=== PATIENT | male | born 1960 | race Caucasian/White ===

== ENCOUNTER 2017-11-22 08:23 | Inpatient (IN) ==
[~2017-11-22 08:23] MED LIST: Bacitracin 50,000 UNIT, Polymyxin B Sulfate 500,000 UNIT, Sodium Chloride IRRigation 1,... IR ONE
[2017-11-22] MEDS ORDERED: CeFAZolin Syr 2,000MG/20 ML 2,000 MG/20 ML SYRINGE IVPB ONE (08:48)
[2017-11-22] MEDS ORDERED: Albuterol 2.5 MG/3 ML NEBULIZER IH ONE (08:52)
[2017-11-22] MEDS ORDERED: Ringers Solution, Lactated 1,000 ML IVC SCH ×2 (09:00→14:10)
--- NOTE | 2017-11-22 09:34 | Anesthesia Evaluation PreOp ---
Date of Encounter: 11/22/17 Time of Encounter: 09:32 - Past History Planned Operation: Exploration of cervical fusion, removal hardware/osteop Cardiac History: Denies any Significant Hx Pulmonary History: Smoker [employer] History: Other (hx cervical fusion; chronic back pain) Other Medical History: Denies Any Significant HX Anesthesia History: No Prior Anesthetic Complications, Past Anesthesia ( cervical fusion, hernia repair, right ankle surgery, T&A) Alcohol Use: none Drug use: marijuana Medications and Allergies Carisoprodol [Soma] 350 mg PO DAILY 11/22/17 [History] Oxycodone HCl/Acetaminophen [Percocet 5-325 mg Tablet] 1 tab PO Q8H PRN [History] Simvastatin [Zocor] 20 mg PO DAILY 11/22/17 [History] 3 Allergy/AdvReac Type Severity Reaction Status Date / Time No Known Allergies Allergy Verified 11/22/17 08:59 - Meds/Allergy Pre-op Review Medications Reviewed: Yes Allergies Reviewed: Yes Beta Blockers on Current Med List: No Anesthesia Results - Labs Laboratory Tests 11/17/17 11/17/17 11/17/17 13:50 13:50 13:50 WBC 9.7 Hgb 17.4 H Hct 50.4 H Plt Count 169 PT 11.2 INR 1.0 APTT 33.6 Sodium 138 Potassium 3.7 Chloride 106 Carbon Dioxide 23 BUN 10 Creatinine 0.81 Est GFR ( Amer) > 60 Est GFR (Non-Af Amer) > 60 BUN/Creatinine Ratio 12 Anesthesia Exam Last Vital Signs Temp 97.6 F 11/22/17 08:51 Pulse 67 11/22/17 08:51 Resp 18 11/22/17 09:12 BP 151/94 11/22/17 09:12 Pulse Ox 96 11/22/17 09:12 Weight: 96 kg NPO (# of Hours): > 8 hrs - HEENT Pupil (Motor): Pupils equal, EOMI Mallampati: III Teeth: Edentulous Oral Opening: Greater than 3 - [employer] LOC: Oriented [employer] Motor: Normal RUE, Normal LUE, Normal RLE, Normal LLE, Normal Face - Cardiac Rhythm: Regular Murmur: None - Pulmonary Breath Sounds: bilateral Clear Anesthesia Assess/Plan ASA Score: 2 Modified Buster Scale for Level of Consciousness: Cooperative, oriented, and tranquil Anesthetic Plan: General Monitoring Plan: Standard Monitors Recovery Plan: PACU
--- NOTE | 2017-11-22 10:24 | History & Physical Report ---
Date of Encounter: 11/22/17 Time of Encounter: 10:24 24 Hour HP Update - Instructions Instructions: If the History and Physical is less than 30 days old and was completed prior to A.M. admission and or procedure and has NOT been updated on calendar day of procedure please complete this update prior to performing procedure. - Update Patient reports changes in Medical Condition: No Changes in examination, assessment, or condition: No Changes in Medication: No Preop tests/diagnostics Reviewed: Yes Pre-Op MRSA Screen: Negative Surgery Remains Indicated: Yes Consent for Planned Operative Procedure(s) Verified: Yes - Pre-Operative Checklist Preoperative Checklist Indicated: No Prophylactic Antibiotic Ordered: Yes Home Medications Include Beta Aidan: No Beta Aidan Taken Today (Day of Surgery): No Beta Aidan Taken Yesterday (Day Prior to Surgery): No Is VTE Prophylaxis Indicated?: Yes
[2017-11-22] MEDS ORDERED: *HR* Propofol 200 MG/20 ML VIAL IVP ONE ×2 (10:42→11:42)
[2017-11-22] MEDS ORDERED: Ondansetron 4 MG/2 ML VIAL ONE (10:42)
[2017-11-22] MEDS ORDERED: *HR* FentaNYL (PF) 100 MCG/2 ML VIAL ONE ×2 (10:42→11:42)
[2017-11-22] MEDS ORDERED: Lidocaine -MPF 2% 2 ML VIAL ONE (10:42)
[2017-11-22] MEDS ORDERED: Ketorolac 30 MG/ML VIAL ONE (10:42)
[2017-11-22] MEDS ORDERED: *HR* Midazolam HCl 2 MG/2 ML VIAL ONE (10:42)
[2017-11-22] MEDS ORDERED: Dexamethasone 4 MG/ML VIAL ONE (10:42)
[2017-11-22] MEDS ORDERED: *HR* Rocuronium Bromide 50 MG/5 ML VIAL ONE (10:42)
[2017-11-22] MEDS ORDERED: EPHEDrine 50 MG/ML VIAL ONE (11:23)
[2017-11-22] MEDS ORDERED: Neostigmine Methylsulfate 3 MG/3 ML SYRINGE ONE (12:46)
--- NOTE | 2017-11-22 12:50 | Orthopedic Operative Note ---
Date of procedure: 11/22/17 Pre-op diagnosis: Dysphagia, esophageal obstruction, cervical spondylosis Post-op diagnosis: same Operation/Findings: Exploration of fusion, removal of cervical osteophytes:The patient was brought to the operating room and placed supine on the operating room table. Successful general endotracheal anesthesia intubation was performed. Palomino catheter was placed prior to positioning. Compression boots and stockings were placed for deep vein thrombosis prophylaxis. Padding was also placed all bony prominences including the ulnar nerve near the medial epicondyles of the elbows were appropriately padded. Mild traction was placed on the bilateral shoulders and taped into place. Preoperative antibiotics were administered. The area from the mandible bilaterally to the upper thoraces was prepped and draped in the usual sterile fashion. An oblique incision was made at the level of the cricoid cartilage which is approximately 3 cm in length and extended from the midline of the cervical spine laterally towards the sternocleidomastoid muscle on the left. The incision was 1 cm medial and parallel to the sternocleidomastoid muscle on the left. We then performed standard medial approach to the carotid sheath. Sponges were used to tease the fascial medial to the sternocleidomastoid muscle while carefully controlling and palpating the carotid artery. Using careful dissection we were able to get to the level of the anterior vertebral bodies and longus coli muscles. The spinal needle was placed at the appropriate C4-5 level level, and intraoperative radiograph was obtained which was a cervical spine lateral radiograph. The needle and radiograph confirmed we were at the correct operative level. We exposed and explored the fusion mass at C5-C6 level and the cervical plate at this level. The fusion mass was explored and there appeared to be a solid arthrodesis at this level and we chose not to remove the hardware. We further exposed C4-5 level by using Bovie cautery under the medial edge of the longus coli muscles to allow them to be retracted approximately 2 mm laterally on each side. We used a bur to remove a very large osteophyte from proximal portion of the C5 and the distal portion of C4. Even bone that had overgrown the proximal portion of the cervical plate was removed. We were careful not to injure the esophagus during the decompression of the osteophyte. After referring the C4-5 osteophyte down to the anterior portion of the vertebral bodies at C4 and C5, bone wax was used to control any bleeders from the anterior portion of the vertebral bodies. At this point a lateral radiograph of the cervical spine was obtained and revealed complete removal of osteophyte which was a significant improvement compared to preoperative films.. The wound was copiously irrigated and bleeders encountered were cauterized using Bovie cautery. Platysma was closed with interrupted 2-0 Vicryl sutures. Running 3-0 Monocryl suture was used for skin closure. Sterile dressing was placed over the neck wound. The patient was transferred to a hospital bed and extubated. The patient was noted to be fully motor and sensory intact in the recovery room at the end of the procedure. The medications. All sponge instrument and needle counts were correct at the end of the procedure. Anesthesia: GETA Surgeon: Yousuf Kyle Jr Was there an safety assistant present: No Estimated blood loss (cc): 25 Specimen: None Condition: stable Disposition: PACU
[2017-11-22] MEDS ORDERED: Albuterol 2.5 MG/3 ML NEBULIZER IH PRN (13:03)
[2017-11-22] MEDS ORDERED: *HR* Promethazine 25 MG/ML VIAL IVP PRN (13:03)
[2017-11-22] MEDS ORDERED: Acetaminophen IV 1,000 MG/100 ML INFUS..BTL IVPB ONE (13:03)
[2017-11-22] MEDS: *HR* Meperidine 25 MG/ML SYRINGE IVP PRN ×2 (13:18→13:33)
[2017-11-22] MEDS: MORPHINE SUL Oral CONC 10 MG/0.5 ML ORAL.SYG SL PRN ×2 (13:19→13:33)
--- NOTE | 2017-11-22 13:46 | Anesthesia Evaluation Post Op ---
Date of Encounter: 11/22/17 Time of Encounter: 14:00 - Vital Signs Vital Signs: Vital Signs/O2 Sat/Glucose, Most Current Temp Pulse Resp BP Pulse Ox 11/22/17 13:42 90 18 140/78 94 11/22/17 13:32 92 18 151/76 93 11/22/17 13:22 92 20 141/78 92 11/22/17 13:12 98.6 F 101 20 166/89 96 - Lungs Lungs: Clear Ascult./Percussion - Airway Airway: Non-obstructed - Cardiovascular Regular Rate - Mental Status Mental Status: Alert & Oriented, Answers Appropriately - Pain Pain Scale: 1 - Nausea Vomiting Nausea Vomiting: Not Present - Hydration Hydration: Ice chips - Discharge PostOp Status: Transfer Patient to floor
[2017-11-22] MEDS ORDERED: Naloxone 0.4 MG/ML INJ IVP PRN (14:10)
[2017-11-22] MEDS ORDERED: *HR* HYDROcodone/Acet 5/325 mg TABLET PO PRN (14:10)
[2017-11-22] MEDS ORDERED: Ondansetron 4 MG/2 ML VIAL IVP PRN (14:10)
[2017-11-22] MEDS ORDERED: Acetaminophen 325 MG TABLET PO PRN (14:10)
[2017-11-22] MEDS: *HR* OxyCODONE Immed Rel 5 MG TABLET PO PRN (14:32)
[2017-11-22] MEDS: CeFAZolin Premix DUPLEX 2,000 MG/50 ML BAG IVPB SCH (15:51)
[2017-11-22] MEDS ORDERED: Carisoprodol 350 MG TABLET PO SCH (21:30)
[2017-11-23] MEDS: CeFAZolin Premix DUPLEX 2,000 MG/50 ML BAG IVPB SCH (00:35)
[2017-11-23] MEDS ORDERED: Ipratropium/Albuterol Neb 3 ML IH PRN (01:41)
[2017-11-23] MEDS: *HR* OxyCODONE Immed Rel 5 MG TABLET PO PRN (03:11)
[2017-11-23] MEDS ORDERED: Ipratropium/Albuterol Neb 3 ML IH SCH (04:00)
[2017-11-23] MEDS ORDERED: Carisoprodol 350 MG TABLET PO SCH (09:00)
--- NOTE | 2017-11-23 13:31 | Discharge Summary ---
- NOTES TO OUTPATIENT PROVIDER Notes to Outpatient Provider: [facility]up [facility] in 2 weeks Date of Encounter: 11/23/17 Time of Encounter: 13:28 - Discharge Diagnosis (1) Esophageal obstruction Priority: Primary Status: Chronic (2) Dysphagia Priority: Secondary Status: Chronic Qualifiers: Dysphagia type: unspecified Qualified Code(s): R13.10 - Dysphagia, unspecified (3) Cervical spondylosis Priority: Secondary Status: Acute Qualifiers: Spinal osteoarthritis complication: without myelopathy or radiculopathy Qualified Code(s): M47.812 - Spondylosis without myelopathy or radiculopathy, cervical region (4) Status post cervical spinal fusion Priority: Secondary Status: Acute - Hospital Course Hospital course: Mr. Cotter is a 57 year old male The patient had an uneventful postoperative course. There was a concern with some swelling in the neck so a CT scan was performed of the neck. This did not show significant mass lesion/hematoma. Progressed from intravenous analgesic needs to oral analgesic needs only. Remained neurovascularly intact and mobilized satisfactorily. All intraoperative and/or postoperative radiographic studies were satisfactory. Patient is discharged with plan for rehabilitation and follow-up in 2 weeks post discharge on analgesic medication and patient's home medications. - Time Spent with Patient Total time spent providing and/or coordinating discharge services: - Discharge Medications Prescriptions: OxyCODONE Immed Rel [Roxicodone 5 MG] 5 mg PO Q6HR PRN 7 Days #30 tablet PRN Reason: Severe Pain Home Medications: Carisoprodol [Soma] 350 mg PO DAILY 11/22/17 [History] Oxycodone HCl/Acetaminophen [Percocet 5-325 mg Tablet] 1 tab PO Q8H PRN [History] Simvastatin [Zocor] 20 mg PO DAILY 11/22/17 [History] OxyCODONE Immed Rel [Roxicodone 5 MG] 5 mg PO Q6HR PRN 7 Days #30 tablet [Rx] Allergies/Adverse Reactions: 3 Allergy/AdvReac Type Severity Reaction Status Date / Time No Known Allergies Allergy Verified 11/22/17 08:59 Date of admission: 11/22/17 14:02 Primary care physician: Stella Davalos CNP Consults: 11/22/17 14:10 Consult to Physical Therapy [CONS] Routine Comment: Evaluate, develop and implement POC Reason for Consult: Postoperative rehabilitation Does patient have active BEDREST order?: No Is patient medically & hemodynamically stable?: Yes Patient assessed for mobility or mobilized this visit?: No Consult to Spine Navigator [CONS] [CONS] Routine 11/22/17 23:49 Consult to Respiratory Therapy [CONS] Stat Reason for Consult: post op neck swelling, suction prn and pulmonary toileting Call Completed: Yes - VTE Documentation of Mechanical Device: Graduated compression elastic hosiery - Impressions ITS Impressions Cervical Spine X-Ray 11/22/17 00:00 IMPRESSION: Single image demonstrating instrumentation at C4-C5. D/ / Rafal Cristina MD / Rafal Cristina MD Interpreting Provider: Rafal Cristina MD Cervical Spine X-Ray 11/22/17 00:00 IMPRESSION: Partially visualized ACDF at C5-6. There is suboptimal visualization of C6, and C7 is not visualized. D/ / Naveed Watson MD / Naveed Watson MD Interpreting Provider: Naveed Watson MD Cervical Spine CT 11/22/17 23:43 IMPRESSION: Postoperative changes of ACDF at C5-C7. There is edema/fluid and gas in the prevertebral space, likely related to recent surgery. This has a maximal thickness of 11 mm. This causes mild mass effect on the posterior aspect of the airway, however the airway remains patent. Additional subcutaneous gas and edema in the left neck are related to recent surgery. No focal hyperdense fluid collections seen to suggest hematoma. Findings were discussed with Dr. Yousuf Kyle at 1:30 am on 11/23/2017. D/ / 11/23/2017 07:37:30 Naveed Oleary MD / paula Interpreting Provider: Naveed Oleary MD - Patient Status Disposition: Home, Self-Care Condition: Good Functional capacity at discharge: independent ambulation Overall status at discharge: patient is progressing back to baseline - Discharge Instructions Follow Up With: Stella Davalos, [employer] [Primary Care Provider] - - Diet and Activity Activity: as per physical therapy Diet: advance to your usual diet
[2017-11-23 14:57] VITALS: BP 144/83
== END 2017-11-23 15:15 | disposition home or self-care (01) | DRG 517 ==
LOC: SAMDAY 08:23 → 3NENU 14:02
PROVIDERS: ADMIT Orthopaedic Surgery Orthopaedic Surgery of the Spine; ATTEND Orthopaedic Surgery Orthopaedic Surgery of the Spine